=== PATIENT | female | born 2000 | race Caucasian/White ===

== ENCOUNTER → 2019-09-24 09:12 | Outpatient (CLI) | payer OTHER, SELFPAY ==
[2019-09-24 09:12] VITALS: BMI 29.1
[2019-09-24 09:42] LABS: Absolute Lymphocyte Count 2.09 X10^3/uL (0.83-4.51); Absolute Neutrophil Count 6.6 X10^3/uL (2.0-7.7); Basophil# 0.03 X10^3/uL; Basophil% 0.3 % (0-1); Eosinophil# 0.06 X10^3/uL; Eosinophils% 0.7 % (0-5); Hematocrit 40.3 % (37-47); Hemoglobin 13.4 g/dL (12.0-15.0); Lymphocyte # 2.09 X10^3/ul (4.0); Lymphocyte % 22.9 % (19-41); Mean Corp Hgb Conc 33.3 g/dL (32-36); Mean Corpuscular Hgb 30.3 pg (27.0-32.0); Mean Corpuscular Volume 91.2 fL (81-99); Mean Platelet Vol. 10.2 fl (6.2-12.0); Monocyte# 0.33 X10^3/uL; Monocyte% 3.6 % (0-10); NRBC Flagged by Analyzer 0 % (0-5); Neutrophil % 72.2 % (47-70); Platelet Count 297 K/mm3 (150-450); RBC Distribution Width SD 39.8 fl (35.1-43.9); Red Blood Count 4.42 M/mm3 (4.2-5.4); White Blood Count 9.1 K/mm3 (4.4-11.0)
[2019-09-24 10:10] LABS: Prolactin 11.7 ng/mL; Thyroid Stim Hormone (TSH) 5.83 uIU/mL (0.358-3.74)
== END ==
LOC: LAB 09:16 → PAVLAB 10:09
PROVIDERS: Referring Provider Nurse Practitioner Women's Health; Visit Provider Nurse Practitioner Women's Health
DX: N92.0 Excessive and frequent menstruation with regular cycle (principal); N94.6 Dysmenorrhea, unspecified
CPT/HCPCS: 36415; 84146; 84439; 84443; 85025

== ENCOUNTER → 2019-10-08 07:57 | Outpatient (CLI) | payer OTHER, SELFPAY ==
[2019-09-24 09:14] VITALS: BMI 25.8
--- NOTE | 2019-10-08 07:58 | US_ITS ---
STUDY: ULTRASOUND OF THE FEMALE PELVIS - COMPLETE REASON FOR EXAM: Female, 18 years old. MENORRHAGIA -- LMP- 08/20/19 AND LASTED THROUGH AUGUST -- DYSMENORRHEA LMP: 08/20/2019 TECHNIQUE: Transabdominal TECHNICAL QUALITY: Adequate. COMPARISON: None. FINDINGS: The uterus is anteverted and is in a midline position. The uterus measures 5.8 cm x 5.6 cm x 2.8 cm. Normal uterine cervix. The endometrium measures 6 mm in thickness, and is . There is no demonstrated endometrial mass. There is no demonstrated myometrial mass. I.U.D. - The patient does not have an I.U.D. The right ovary is visualized. The right ovary measures 2.7 cm x 2.3 cm x 1.3 cm. There is no right ovarian cyst or ovarian mass. There is no visualized right adnexal mass or complex lesion. There is normal arterial and normal venous vascularity. The left ovary is visualized. The left ovary measures 3.7 cm x 2.7 cm x 1.5 cm. A dominant follicle is seen within the ovary measuring 1.6 cm x 1.5 cm x 1.1 cm. There is no visualized left adnexal mass or complex lesion. There is normal arterial and normal venous vascularity. There is no fluid in the cul-de-sac. US/Pelvic (Non ) IMPRESSION: Dominant follicle is seen in the left ovary measuring 1.6 cm x 1.5 cm x 1.1 cm. Electronically Signed: Garfield Harp, at 9:21 EDT , Service support ,
== END ==
PROVIDERS: Referring Provider Nurse Practitioner Women's Health; Visit Provider Nurse Practitioner Women's Health
DX: N92.1 Excessive and frequent menstruation with irregular cycle (principal); N94.6 Dysmenorrhea, unspecified
CPT/HCPCS: 76856; 93976

== ENCOUNTER 2021-04-08 16:45 | Outpatient (CLI) | payer OTHER, SELFPAY ==
[2021-04-10 21:07] LABS: Chlamydia By Nucleic Acid AMP Negative (Negative)
[2021-04-10 22:41] LABS: Gonococcus By Nucleic Acid AMP Negative (Negative)
[2021-04-13 09:17] LABS: HPV Reflexed? NOT INDICATED
== END 2021-04-08 23:59 | disposition home or self-care (01) ==
LOC: LABSPEC 16:48
PROVIDERS: Visit Provider Nurse Practitioner Women's Health
DX: Z12.4 Encounter for screening for malignant neoplasm of cervix (principal); Z11.3 Encounter for screening for infections with a predominantly sexual mode of transmission
CPT/HCPCS: 87491; 87591; 88175; G0145

== ENCOUNTER → 2023-08-01 | Outpatient (CLI) | payer OTHER, SELFPAY | END | disposition home or self-care (01) | LOC: LABSPEC 13:47 | PROVIDERS: Referring Provider Nurse Practitioner Women's Health; Visit Provider Nurse Practitioner Women's Health | DX: N89.8 Other specified noninflammatory disorders of vagina (principal) | CPT/HCPCS: 87070; 87205 ==